=== PATIENT | male | born 1950 | race Caucasian/White ===

== ENCOUNTER → 2016-08-23 | Outpatient (CLI) | payer MEDICARE ==
[2016-08-23 18:20] LABS: BASO % 0.3 % (0.0-1.0); EOS # 0.2 K/mm3 (0.0-0.50); EOS % 3.3 % (0.0-3.0); LARGE UNSTAINED CELL # 0.1 K/mm3 (0.0-0.4); LARGE UNSTAINED CELL % 1.5 % (0.0-4.0); LYMPH # 1.5 K/mm3 (1.5-4.5); LYMPH % 22.8 % (24.0-44.0); MEAN CORPUSCULAR HGB CONC 31.7 g/dl (32.0-36.5); MEAN CORPUSCULAR VOLUME 94.5 fl (80.0-96.0); MONO # 0.4 K/mm3 (0.0-0.8); MONO % 6.9 % (0.0-5.0); NEUTROPHILS # 4.1 K/mm3 (1.8-7.7); NEUTROPHILS % 65.1 % (36.0-66.0); PLATELET COUNT, AUTOMATED 251 k/mm3 (150-450); RED CELL DISTRIBUTION WIDTH 14.6 % (11.5-14.5); WHITE BLOOD COUNT 6.3 K/mm3 (4.0-10.0)
[2016-08-23 18:45] LABS: ALBUMIN 3.6 GM/DL (3.2-5.2); ALBUMIN/GLOBULIN RATIO 1.03 (1.00-1.93); ALKALINE PHOSPHATASE 114 U/L (45-117); ALT/SGPT 33 U/L (12-78); ANION GAP 9 MEQ/L (8-16); AST/SGOT 15 U/L (15-37); BILIRUBIN,TOTAL 0.4 MG/DL (0.2-1.0); BLOOD UREA NITROGEN 18 MG/DL (7-18); CALCIUM LEVEL 8.5 MG/DL (8.8-10.2); CARBON DIOXIDE LEVEL 27 MEQ/L (21-32); CHLORIDE LEVEL 108 MEQ/L (98-107); CHOLESTEROL LEVEL 186 MG/DL (<200); CREATININE FOR GFR 0.95 MG/DL (0.70-1.30); FREE T4 1.05 NG/DL (0.76-1.46); GLOMERULAR FILTRATION RATE > 60.0 (>49); GLUCOSE, FASTING 117 MG/DL (80-110); POTASSIUM SERUM 4.5 MEQ/L (3.5-5.1); SODIUM LEVEL 144 MEQ/L (136-145); TOTAL PROTEIN 7.1 GM/DL (6.4-8.2); TRIGLYCERIDES LEVEL 87 MG/DL (<150)
== END ==
LOC: M WUC 09:33
PROVIDERS: ATTEND Physician Assistant Medical
DX: E78.2 Mixed hyperlipidemia (principal); I10 Essential (primary) hypertension; R73.01 Impaired fasting glucose

== ENCOUNTER → 2016-09-16 | Outpatient (REF) | payer MEDICARE | LOC: M SFHCADAM 11:57 | PROVIDERS: ATTEND Physician Assistant Medical | DX: D64.9 Anemia, unspecified (principal); Z53.8 Procedure and treatment not carried out for other reasons ==

== ENCOUNTER → 2016-10-27 | Outpatient (CLI) | payer MEDICARE ==
--- NOTE | 2016-10-27 17:43 | REP ---
Chest CT without contrast: Low-dose lung cancer screening study: History: Lung cancer screening. Comparison chest x-ray is from 09/11/2014. Findings: The patient is status post cholecystectomy. There are clips in the gallbladder fossa. Sutures are noted in the left upper abdomen suggesting gastric bypass surgery. The lung arauz show no evidence of infiltrate, nodule, or mass lesion. Tracheobronchial tree is unremarkable. There is some vascular calcification in the course of the left coronary artery. There appear to be to old right-sided rib fractures. Impression: Negative lung cancer screening CT study. Signed by Ck Lomeli MD 10/27/2016 07:36 P
== END ==
LOC: M RAD 16:42
PROVIDERS: ATTEND Physician Assistant Medical
DX: Z12.2 Encounter for screening for malignant neoplasm of respiratory organs (principal); F17.210 Nicotine dependence, cigarettes, uncomplicated

== ENCOUNTER → 2017-04-13 | Outpatient (REF) | payer OTHER ==
[~2017-04-13] MED LIST: LISI40TAB PO; LOVA20TA2 PO; MENSTAB5 PO; PANT40TA2 PO
[2017-04-13 21:08] LABS: BASO # 0.1 10^3/uL (0.0-0.2); BASO % 0.8 % (0.0-1.0); EOS # 0.1 10^3/uL (0.0-0.50); EOS % 1.8 % (0.0-3.0); IMMATURE GRANULOCYTE % 0.4 % (0-0); LYMPH # 1.6 10^3/uL (1.5-4.5); LYMPH % 20.9 % (24.0-44.0); MEAN CORPUSCULAR HGB CONC 31.1 g/dl (32.0-36.5); MEAN CORPUSCULAR VOLUME 89.9 fl (80.0-96.0); MONO # 0.8 10^3/uL (0.0-0.8); MONO % 9.9 % (0.0-5.0); NEUTROPHILS % 66.2 % (36.0-66.0); PLATELET COUNT, AUTOMATED 284 10^3/uL (150-450); RED CELL DISTRIBUTION WIDTH 16.8 % (11.5-14.5); WHITE BLOOD COUNT 7.6 10^3/uL (4.0-10.0)
[2017-04-13 21:55] LABS: PERCENT SATURATION 4.7 % (19.7-50.0)
[2017-04-13 22:01] LABS: FOLATE 14.4 NG/ML
== END ==
LOC: M SFHCADAM 16:18
PROVIDERS: ATTEND Physician Assistant Medical
DX: I10 Essential (primary) hypertension (principal); D64.9 Anemia, unspecified
CPT/HCPCS: 82607; 82728; 82746; 83550; 85025; 90471; 90715; G0463

== ENCOUNTER 2017-05-11 08:54 | Day surgery (SDC) | payer OTHER ==
[~2017-05-11] VITALS: Ht 180.3 cm; Wt 115.2 kg
[2017-05-11] MEDS ORDERED: NS 1,000 ML IV SCH (10:15)
[2017-05-11] MEDS ORDERED: LIDOCAINE 2% INJ 100 MG/5 ML SDV (FOR ANES.) As Ordered ONE (11:12)
[2017-05-11] MEDS ORDERED: PROPOFOL 500 MG/50 ML VIAL As Ordered ONE (11:12)
--- NOTE | 2017-05-11 11:21 | ROOR ---
Patient Name: Jacob Quezada Procedure Date: 05/11/2017 11:01 AM Date of : 1950 Age: 66 Room: [facility] Gender: Male Note Status: Finalized Procedure: Upper GI endoscopy Indications: Iron deficiency anemia Providers: Laureano SCHULTE MD Referring MD: SIRENA Johnson Requesting Provider: Medicines: Monitored Anesthesia Care Complications: No immediate complications. Procedure: Pre-Anesthesia Assessment: - The heart rate, respiratory rate, oxygen saturations, blood pressure, adequacy of pulmonary ventilation, and response to care were monitored throughout the procedure. The Endoscope was introduced through the mouth, and advanced to the jejunum. The upper GI endoscopy was accomplished without difficulty. The patient tolerated the procedure well. Findings: The examined esophagus was normal. Evidence of a previous surgical anastomosis was found in the gastric antrum. This was characterized by healthy appearing mucosa. The examined jejunum was normal. This was biopsied with a cold forceps for evaluation of celiac disease. Impression: - Normal esophagus. - A previous surgical anastomosis was found, characterized by healthy appearing mucosa. (The distal anastomosis is out of reach of the scope, but I presume this is a trudy en y, as I do not see any bile present in any segment of the exam). - Normal examined jejunum. Biopsied. Recommendation: - Recommend an iron supplement for the rest of the patient's life. Laureano Schulte MD Laureano SCHULTE MD 05/11/2017 11:20:46 AM This report has been signed electronically. Number of Addenda: 0 Note Initiated On: 05/11/2017 11:01 AM Estimated Blood Loss: Estimated blood loss: none.
--- NOTE | 2017-05-11 11:45 | ROOR ---
Patient Name: Jacob Quezada Procedure Date: 05/11/2017 11:02 AM Date of : 1950 Age: 66 Room: [facility] Gender: Male Note Status: Finalized Procedure: Colonoscopy Indications: Iron deficiency anemia Providers: Laureano SCHULTE MD Referring MD: SIRENA Johnson Requesting Provider: Medicines: Monitored Anesthesia Care Complications: No immediate complications. Procedure: Pre-Anesthesia Assessment: - The heart rate, respiratory rate, oxygen saturations, blood pressure, adequacy of pulmonary ventilation, and response to care were monitored throughout the procedure. The Colonoscope was introduced through the anus and advanced to the cecum, identified by appendiceal orifice and ileocecal valve. The colonoscopy was performed without difficulty. The patient tolerated the procedure well. The quality of the bowel preparation was adequate. Findings: The perianal and digital rectal examinations were normal. A single small angioectasia without bleeding was found in the cecum. For hemostasis, three hemostatic clips were successfully placed (MR conditional). There was no bleeding at the end of the procedure. The exam was otherwise without abnormality on direct and retroflexion views. Impression: - A single 2-3 mm non-bleeding angioectasia (dubious significance) in cecum. Clips (MR conditional) were placed. - Mild sigmoid diverticulosis. - The colon examination was otherwise normal on direct and retroflexion views. - No specimens collected. Recommendation: - Iron deficit is most likely related to malabsorption/gastric bypass. You need iron supplements daily for the rest of your life. - Repeat colonoscopy in 10 years for screening purposes. Laureano Schulte MD Laureano SCHULTE MD 05/11/2017 11:45:22 AM This report has been signed electronically. Number of Addenda: 0 Note Initiated On: 05/11/2017 11:02 AM Estimated Blood Loss: Estimated blood loss: none.
[2017-05-11 12:00] VITALS: BP 153/90
== END 2017-05-11 12:06 | disposition home or self-care (01) ==
LOC: M OPP 08:54
PROVIDERS: ATTEND Internal Medicine Gastroenterology
DX: D50.9 Iron deficiency anemia, unspecified (principal); K57.30 Diverticulosis of large intestine without perforation or abscess without bleeding; R12 Heartburn; K63.89 Other specified diseases of intestine; K21.9 Gastro-esophageal reflux disease without esophagitis; I10 Essential (primary) hypertension; E78.5 Hyperlipidemia, unspecified; M54.9 Dorsalgia, unspecified; F17.210 Nicotine dependence, cigarettes, uncomplicated; Z98.84 Bariatric surgery status; Z79.899 Other long term (current) drug therapy

== ENCOUNTER → 2017-06-29 | Outpatient (REF) | payer OTHER ==
[2017-06-29 15:39] LABS: PLATELET COUNT, AUTOMATED 264 10^3/uL (150-450)
[2017-06-29 15:50] LABS: INR 1.05
[2017-06-29 16:22] LABS: ERYTHROCYTE SEDIMENTATION RATE 11 mm/hr (0-20)
== END ==
LOC: M LABDRAW1 15:20
PROVIDERS: ATTEND Physical Medicine & Rehabilitation
DX: Z01.818 Encounter for other preprocedural examination (principal); M48.061 Spinal stenosis, lumbar region without neurogenic claudication

== ENCOUNTER → 2017-07-27 | Outpatient (REF) | payer OTHER ==
[2017-07-27 15:13] LABS: BLOOD UREA NITROGEN 21 MG/DL (7-18)
[2017-07-27 15:13] LABS: CREATININE FOR GFR 1.01 MG/DL (0.70-1.30); GLOMERULAR FILTRATION RATE > 60.0 (>49)
== END ==
LOC: M LABDRAW1 14:03
DX: Z79.1 Long term (current) use of non-steroidal anti-inflammatories (NSAID) (principal)
CPT/HCPCS: 82565

== ENCOUNTER → 2017-10-13 | Outpatient (REF) | payer OTHER ==
[2017-10-13 13:16] LABS: BASO % 0.7 % (0.0-1.0); EOS # 0.1 10^3/uL (0.0-0.50); HEMATOCRIT 41.9 % (42.0-52.0); HEMOGLOBIN 13.4 g/dl (14.0-18.0); IMMATURE GRANULOCYTE % 0.4 % (0-3.0); LYMPH # 1.1 10^3/uL (1.5-4.5); LYMPH % 20.3 % (24.0-44.0); MEAN CORPUSCULAR HEMOGLOBIN 28.5 pg (27.0-33.0); MONO # 0.5 10^3/uL (0.0-0.8); MONO % 8.6 % (0.0-5.0); NEUTROPHILS # 3.8 10^3/uL (1.8-7.7); PLATELET COUNT, AUTOMATED 234 10^3/uL (150-450); RED BLOOD COUNT 4.71 10^6/uL (4.30-6.10); RED CELL DISTRIBUTION WIDTH 17.5 % (11.5-14.5); WHITE BLOOD COUNT 5.6 10^3/uL (4.0-10.0)
[2017-10-13 13:27] LABS: BLOOD UREA NITROGEN 16 MG/DL (7-18); CREATININE FOR GFR 1.21 MG/DL (0.70-1.30); GLUCOSE, FASTING 118 MG/DL (70-100)
[2017-10-13 13:28] LABS: ALBUMIN 3.6 GM/DL (3.2-5.2); ALKALINE PHOSPHATASE 94 U/L (45-117); ALT/SGPT 26 U/L (12-78); ANION GAP 7 MEQ/L (8-16); AST/SGOT 13 U/L (7-37); BILIRUBIN,TOTAL 0.4 MG/DL (0.2-1.0); CALCIUM LEVEL 8.7 MG/DL (8.8-10.2); CARBON DIOXIDE LEVEL 26 MEQ/L (21-32); CHLORIDE LEVEL 110 MEQ/L (98-107); CHOLESTEROL LEVEL 179 MG/DL (<200); CHOLESTEROL RISK RATIO 2.712 (<5); FERRITIN 8 NG/ML (26-388); GLOMERULAR FILTRATION RATE > 60.0 (>49); HDL CHOLESTEROL 66 MG/DL (>40); IRON (FE) 189 UG/DL (65-175); LDL CHOLESTEROL 93.8 MG/DL (<100); NON-HDL-C 113 MG/DL; PERCENT SATURATION 44.7 % (19.7-50.0); POTASSIUM SERUM 4.7 MEQ/L (3.5-5.1); SODIUM LEVEL 143 MEQ/L (136-145); TOTAL IRON BINDING CAPACITY 423 UG/DL (250-450); TOTAL PROTEIN 7.2 GM/DL (6.4-8.2); TRIGLYCERIDES LEVEL 96 MG/DL (<150)
[2017-10-13 13:35] LABS: ESTIMATED AVERAGE GLUCOSE 120 MG/DL (60-110); HEMOGLOBIN A1c 5.8 %
[2017-10-13 13:53] LABS: MAU/CREAT RATIO 60.9 MCG/MG (0.0-30.0)
== END ==
LOC: M SFHCADAM 08:47
DX: I10 Essential (primary) hypertension (principal); E78.2 Mixed hyperlipidemia; E66.01 Morbid (severe) obesity due to excess calories; D50.9 Iron deficiency anemia, unspecified
CPT/HCPCS: 83550

== ENCOUNTER → 2017-11-05 | Outpatient (CLI) | payer OTHER | LOC: M RAD 08:06 | DX: K76.0 Fatty (change of) liver, not elsewhere classified (principal); F10.10 Alcohol abuse, uncomplicated; Z90.49 Acquired absence of other specified parts of digestive tract | CPT/HCPCS: 76705 ==

== ENCOUNTER → 2017-11-09 | Outpatient (REF) | payer OTHER ==
[2017-11-09 19:11] LABS: INR 1.05; PROTHROMBIN TIME 13.8 SECONDS (12.4-14.5)
[2017-11-09 19:23] LABS: AMMONIA 65 uMOL/L (<32)
[2017-11-10 08:32] LABS: ALPHA FETOPROTEIN TUMOR QUANT 2.4 NG/ML (<8.1)
== END ==
LOC: M SFHCADAM 14:07
DX: F10.10 Alcohol abuse, uncomplicated (principal); K70.30 Alcoholic cirrhosis of liver without ascites; K76.0 Fatty (change of) liver, not elsewhere classified; I10 Essential (primary) hypertension; F17.210 Nicotine dependence, cigarettes, uncomplicated; Z79.899 Other long term (current) drug therapy
CPT/HCPCS: 82140

== ENCOUNTER → 2017-12-05 | Outpatient (REF) | payer OTHER ==
[2017-12-05 17:41] LABS: BASO # 0.1 10^3/uL (0.0-0.2); EOS # 0.1 10^3/uL (0.0-0.50); EOS % 1.8 % (0.0-3.0); HEMATOCRIT 43.3 % (42.0-52.0); HEMOGLOBIN 13.8 g/dl (13.5-17.5); IMMATURE GRANULOCYTE % 0.2 % (0-3.0); LYMPH # 1.4 10^3/uL (1.5-4.5); LYMPH % 22.5 % (24.0-44.0); MEAN CORPUSCULAR HEMOGLOBIN 29.6 pg (27.0-33.0); MEAN CORPUSCULAR HGB CONC 31.9 g/dl (32.0-36.5); MEAN CORPUSCULAR VOLUME 92.9 fl (80.0-96.0); MONO # 0.6 10^3/uL (0.0-0.8); MONO % 9.3 % (0.0-5.0); NEUTROPHILS # 4.1 10^3/uL (1.8-7.7); NEUTROPHILS % 65.2 % (36.0-66.0); PLATELET COUNT, AUTOMATED 250 10^3/uL (150-450); RED BLOOD COUNT 4.66 10^6/uL (4.30-6.10); RED CELL DISTRIBUTION WIDTH 17.4 % (11.5-14.5); WHITE BLOOD COUNT 6.2 10^3/uL (4.0-10.0)
[2017-12-05 17:57] LABS: INR 0.96; PROTHROMBIN TIME 12.9 SECONDS (12.4-14.5)
[2017-12-05 17:58] LABS: ALBUMIN 3.5 GM/DL (3.2-5.2); ALBUMIN/GLOBULIN RATIO 0.95 (1.00-1.93); ALKALINE PHOSPHATASE 116 U/L (45-117); ALT/SGPT 46 U/L (12-78); ANION GAP 5 MEQ/L (8-16); AST/SGOT 30 U/L (7-37); BILIRUBIN,TOTAL 0.3 MG/DL (0.2-1.0); BLOOD UREA NITROGEN 21 MG/DL (7-18); CALCIUM LEVEL 8.5 MG/DL (8.8-10.2); CARBON DIOXIDE LEVEL 25 MEQ/L (21-32); CHLORIDE LEVEL 113 MEQ/L (98-107); CREATININE FOR GFR 0.99 MG/DL (0.70-1.30); FERRITIN 9 NG/ML (26-388); GLOMERULAR FILTRATION RATE > 60.0 (>49); GLUCOSE, FASTING 118 MG/DL (70-100); IRON (FE) 100 UG/DL (65-175); PERCENT SATURATION 23.3 % (19.7-50.0); SODIUM LEVEL 143 MEQ/L (136-145); TOTAL IRON BINDING CAPACITY 429 UG/DL (250-450); TOTAL PROTEIN 7.2 GM/DL (6.4-8.2)
[2017-12-05 17:59] LABS: AMMONIA 108 uMOL/L (<32)
[2017-12-05 18:08] LABS: ESTIMATED AVERAGE GLUCOSE 120 MG/DL (60-110); HEMOGLOBIN A1c 5.8 %; POTASSIUM SERUM 5.2 MEQ/L (3.5-5.1)
== END ==
LOC: M LABDRWAD 17:18
DX: I10 Essential (primary) hypertension (principal); D50.9 Iron deficiency anemia, unspecified; R73.01 Impaired fasting glucose; F10.10 Alcohol abuse, uncomplicated
CPT/HCPCS: 82140

== ENCOUNTER → 2018-01-18 | Outpatient (REF) | payer OTHER ==
[2018-01-18 19:52] LABS: AMMONIA 48 uMOL/L (<32)
== END ==
LOC: M SFHCADAM 15:20
DX: K70.30 Alcoholic cirrhosis of liver without ascites (principal)
CPT/HCPCS: 82140

== ENCOUNTER → 2018-02-17 | Outpatient (REF) | payer OTHER ==
[2018-02-17 12:40] LABS: AMMONIA 40 uMOL/L (<32)
== END ==
LOC: M SFHCADAM 10:32
DX: K70.30 Alcoholic cirrhosis of liver without ascites (principal)
CPT/HCPCS: 82140

== ENCOUNTER → 2018-04-09 | Outpatient (REF) | payer OTHER ==
[2018-04-09 15:12] LABS: INR 1.04; PROTHROMBIN TIME 13.7 SECONDS (12.1-14.4)
[2018-04-09 16:16] LABS: AMMONIA 53 uMOL/L (<32)
[2018-04-09 16:29] LABS: ALPHA FETOPROTEIN TUMOR QUANT 3.2 NG/ML (<8.1)
== END ==
LOC: M SFHCADAM 13:37
DX: F10.10 Alcohol abuse, uncomplicated (principal)
CPT/HCPCS: 82140

== ENCOUNTER → 2018-04-26 | Outpatient (CLI) | payer OTHER | LOC: M RAD 07:58 | DX: K70.30 Alcoholic cirrhosis of liver without ascites (principal) | CPT/HCPCS: 76705 ==

== ENCOUNTER 2018-09-21 11:22 | Emergency (ER) | payer MEDICARE, OTHER ==
[~2018-09-21] VITALS: Ht 180.3 cm; Wt 112.7 kg
[~2018-09-21 11:22] MED LIST changes: +LISI40TA PO; -LISI40TAB PO; -PANT40TA2 PO; +PANT40TA3 PO
[2018-09-21] MEDS ORDERED: MELO15TA28 PO (11:30)
--- NOTE | 2018-09-21 13:01 | REP ---
Left upper extremity duplex venous ultrasound: History: Pain and ecchymosis. Status post fall. Findings: The left internal jugular, axillary, brachial, basilic, and cephalic veins are anechoic and compressible in the left upper extremity. Color flow imaging is homogeneous. Spectral Doppler interrogation is unremarkable. There is no evidence of left upper extremity venous thrombosis. Impression: Negative left upper extremity duplex venous ultrasound. No evidence of venous thrombosis. Electronically Signed by Ck Lomeli MD 09/21/2018 12:53 P
--- NOTE | 2018-09-21 13:04 | REP ---
Left humerus: Two views. History: Pain and ecchymosis after fall. Findings: There is osteoarthritic hypertrophy at the AC joint. Glenohumeral joint is normally aligned. Mild inferior glenoid spurring is seen. The there is no evidence of fracture or subluxation. Lateral epicondylar spurring is noted at the elbow. Impression: No traumatic abnormality noted. Osteoarthritic changes and lateral epicondylar spurring. Electronically Signed by Ck Lomeli MD 09/21/2018 12:55 P
[2018-09-21 13:18] VITALS: BP 166/90
--- NOTE | 2018-09-21 13:36 | REP ---
Left shoulder series: Three views. History: Pain and ecchymosis after a fall. Findings: There is moderate osteoarthritis at the AC joint. Inferolateral acromion process spurring is seen. Glenohumeral osteoarthritic spurring is seen mild in degree. No erosive changes seen. No fracture is noted. Impression: Osteoarthritis. No fracture seen. Electronically Signed by Ck Lomeli MD 09/21/2018 02:46 P
== END 2018-09-21 13:49 | disposition home or self-care (01) ==
LOC: M ED 11:22
DX: S40.022A Contusion of left upper arm, initial encounter (principal); W00.9XXA Unspecified fall due to ice and snow, initial encounter; Y92.099 Unspecified place in other non-institutional residence as the place of occurrence of the external cause; Y93.9 Activity, unspecified; Y99.9 Unspecified external cause status; M79.602 Pain in left arm; M77.12 Lateral epicondylitis, left elbow; M19.022 Primary osteoarthritis, left elbow; K21.9 Gastro-esophageal reflux disease without esophagitis; G47.30 Sleep apnea, unspecified; Z98.84 Bariatric surgery status; Z72.0 Tobacco use; Z79.899 Other long term (current) drug therapy

== ENCOUNTER → 2018-09-30 | Outpatient (CLI) | payer MEDICARE ==
[~2018-09-30] MED LIST changes: +MELO15TA28 PO
--- NOTE | 2018-09-30 18:33 | REP ---
Clinical: EtOH hepatic disease. Technique: Real time myers scale ultrasound examination using curved array transducer. Comparison: 04/26/2018. Findings: Liver is mildly enlarged but normal in parenchymal echogenicity and without focal hepatic lesion identified. The pancreas is unremarkable. The gallbladder is absent and consistent with prior cholecystectomy. No biliary ductal dilatation is appreciated and the common bile duct measures 6.5 mm diameter. Right kidney is normal in reniform shape without hydronephrosis and measures 13.4 x 6.9 x 6.8 cm. No ascites. Impression: Subjectively mildly enlarged liver without focal hepatic lesion identified. No significant change from prior examination. Electronically Signed by Silas Virgen MD 09/30/2018 06:24 P
== END ==
LOC: M RAD 08:11
PROVIDERS: ATTEND Physician Assistant Medical
DX: K70.30 Alcoholic cirrhosis of liver without ascites (principal)

== ENCOUNTER → 2018-10-10 | Outpatient (CLI) | payer OTHER | LOC: M ADAMS 08:16 | PROVIDERS: ATTEND Physician Assistant Medical | DX: K76.0 Fatty (change of) liver, not elsewhere classified (principal); K70.30 Alcoholic cirrhosis of liver without ascites; R73.01 Impaired fasting glucose; D50.9 Iron deficiency anemia, unspecified; K21.9 Gastro-esophageal reflux disease without esophagitis; Z53.9 Procedure and treatment not carried out, unspecified reason ==

== ENCOUNTER → 2018-10-10 | Outpatient (REF) | payer OTHER ==
[2018-10-10 18:22] LABS: BASO # 0.1 10^3/uL (0.0-0.2); BASO % 0.9 % (0.0-1.0); EOS # 0.3 10^3/uL (0.0-0.50); EOS % 3.9 % (0.0-3.0); HEMATOCRIT 45.5 % (42.0-52.0); LYMPH # 1.2 10^3/uL (1.5-4.5); LYMPH % 18.4 % (24.0-44.0); MEAN CORPUSCULAR HEMOGLOBIN 32.1 pg (27.0-33.0); MEAN CORPUSCULAR VOLUME 97.2 fl (80.0-96.0); MONO # 0.6 10^3/uL (0.0-0.8); MONO % 9.3 % (0.0-5.0); NEUTROPHILS # 4.3 10^3/uL (1.8-7.7); NEUTROPHILS % 67.2 % (36.0-66.0); PLATELET COUNT, AUTOMATED 228 10^3/uL (150-450); RED BLOOD COUNT 4.68 10^6/uL (4.30-6.10); WHITE BLOOD COUNT 6.4 10^3/uL (4.0-10.0)
[2018-10-10 18:23] LABS: ALBUMIN 3.6 GM/DL (3.2-5.2); ALT/SGPT 44 U/L (12-78); BILIRUBIN,TOTAL 0.4 MG/DL (0.2-1.0); BLOOD UREA NITROGEN 19 MG/DL (7-18); CALCIUM LEVEL 8.5 MG/DL (8.8-10.2); CARBON DIOXIDE LEVEL 27 MEQ/L (21-32); CHLORIDE LEVEL 109 MEQ/L (98-107); CHOLESTEROL LEVEL 171 MG/DL (<200); CHOLESTEROL RISK RATIO 2.758 (<5); FERRITIN 22 NG/ML (26-388); GLOMERULAR FILTRATION RATE > 60.0 (>49); GLUCOSE, FASTING 130 MG/DL (70-100); HDL CHOLESTEROL 62 MG/DL (>40); IRON (FE) 116 UG/DL (65-175); LDL CHOLESTEROL 92 MG/DL (<100); NON-HDL-C 109 MG/DL; PERCENT SATURATION 29.1 % (19.7-50.0); POTASSIUM SERUM 4.9 MEQ/L (3.5-5.1); SODIUM LEVEL 141 MEQ/L (136-145); THYROID STIMULATING HORMONE 0.858 uIU/ML (0.358-3.740); TOTAL IRON BINDING CAPACITY 399 UG/DL (250-450); TRIGLYCERIDES LEVEL 83 MG/DL (<150)
[2018-10-10 18:57] LABS: HEMOGLOBIN A1c 5.5 %
== END ==
LOC: M SFHCADAM 08:04
PROVIDERS: ATTEND Physician Assistant Medical
DX: K76.0 Fatty (change of) liver, not elsewhere classified (principal); K70.30 Alcoholic cirrhosis of liver without ascites; K21.9 Gastro-esophageal reflux disease without esophagitis; R73.01 Impaired fasting glucose; D50.9 Iron deficiency anemia, unspecified

== ENCOUNTER → 2018-10-19 | Outpatient (CLI) | payer MEDICARE ==
--- NOTE | 2018-10-23 09:43 | REP ---
Clinical: Palpable thyroid neck mass. Technique: Real time myers scale and color evaluation using linear high frequency transducer. Findings: The thyroid gland is diffusely heterogeneous. The isthmus measures 7.6 mm in width. The right lobe measures 4.1 x 2.6 x 2.0 cm and the palpable mass corresponds to a complex cyst in the mid/lower pole measuring 1.6 x 1.7 x 1.9 cm which contains few septations and 7 mm soft tissue component with punctate calcifications. A small simple upper pole cyst is also identified measuring 0.4 x 0.4 x 0.3 cm. The left lobe measures 4.2 x 2.5 x 2.2 cm and includes 1.2 x 1.1 x 1.0 cm isoechoic mid pole nodule along with two simple cysts measuring 0.6 x 0.4 x 0.3 cm and 0.5 x 0.3 x 0.3 cm. Impression: 1. Palpable thyroid mass corresponds to complex cyst in the right lobe which may warrant further investigation including biopsy. 2. Nonspecific isoechoic nodule in the left lobe and few small simple cysts are also identified bilaterally. Electronically Signed by Silas Virgen MD 10/23/2018 09:35 A
== END ==
LOC: M RAD 13:24
PROVIDERS: ATTEND Physician Assistant Medical
DX: R22.1 Localized swelling, mass and lump, neck (principal)

== ENCOUNTER → 2018-11-28 | Outpatient (REF) | payer MEDICARE | LOC: M SFHCADAM 08:04 | PROVIDERS: ATTEND Physician Assistant Medical | DX: K70.30 Alcoholic cirrhosis of liver without ascites (principal) ==

== ENCOUNTER → 2018-12-09 | Outpatient (REF) | payer MEDICARE | LOC: M LAB REF 15:52 | PROVIDERS: ATTEND Internal Medicine Endocrinology, Diabetes & Metabolism | DX: E07.9 Disorder of thyroid, unspecified (principal) ==

== ENCOUNTER → 2019-01-26 | Outpatient (CLI) | payer MEDICARE ==
[~2019-01-26] MED LIST changes: +LACT10SO3 PO; +LIDOCAINE 1% MDV 20ML VIAL As Ordered ONE; +MULT1TAB8 PO
[2019-01-26 13:00] VITALS: BP 164/89
--- NOTE | 2019-01-26 20:37 | REP ---
Ultrasound-guided right thyroid biopsy This procedure was performed by SRIRAM Storey, under the personal supervision of Dr. Edward. The patient has a history of complex cyst in the right mid/lower pole measuring 1.6 x 1.7 x 1.9 cm which contains a few septations and a 7 mm soft tissue component on an ultrasound dated 10/19/2018. The risks and the benefits of the procedure were explained to the patient and informed consent was obtained both verbally and written. Directly prior to the start of the procedure, a formal time out was completed in the procedure room. The right thyroid nodule was localized using ultrasound guidance. The skin was prepped and draped in a sterile fashion. 1% lidocaine was used as a local anesthetic. Using ultrasound guidance 5 fine-needle aspirations were obtained using 25 gauge needles of the right thyroid nodule. The patient tolerated the procedure well and there were no immediate complications. After the appropriate amount of monitored convalescence the patient was discharged from the department. Reviewed by SRIRAM Storey 01/26/2019 02:01 P Electronically Signed by Kike Edward MD 01/26/2019 08:27 P
== END ==
LOC: M IRPRO 11:30 → M RADPRO 11:30
PROVIDERS: ATTEND Internal Medicine Endocrinology, Diabetes & Metabolism
DX: E04.2 Nontoxic multinodular goiter (principal)

== ENCOUNTER → 2019-02-09 | Outpatient (REF) | payer MEDICARE ==
[~2019-02-09] MED LIST changes: -LIDOCAINE 1% MDV 20ML VIAL As Ordered ONE
== END ==
LOC: M SFHCPLAZ 17:20
PROVIDERS: ATTEND Dermatology
DX: C43.62 Malignant melanoma of left upper limb, including shoulder (principal)

== ENCOUNTER → 2019-03-11 | Outpatient (CLI) | payer MEDICARE ==
[~2019-03-11] MED LIST changes: +EMLA CREAM 5GM (LIDOCAINE/PRILOCAINE) As Ordered ONE
--- NOTE | 2019-03-14 09:31 | REP ---
MELANOMA LYMPHOSCINTIGRAPHY: Lymphoscintigraphy is performed for melanoma lesion on the soft tissues of the left shoulder region. Injection was performed by my colleague, Alivia Shah, RSA. 1.008 millicuries technetium 99m filtered sulfur colloid is injected subcutaneously in eight equal separate injection circumferentially around the skin lesion. Images are obtained in the flow phase and 60 minutes post injection. Two discrete foci of increased uptake are seen in the region of the left axilla, one somewhat anteriorly and one somewhat posteriorly. Electronically Signed by Kike Edward MD 03/15/2019 11:29 P
== END ==
LOC: M RADPRO 07:43 → M SDC 07:43 → EDSTATUS 08:00
PROVIDERS: ATTEND Surgery
DX: C43.62 Malignant melanoma of left upper limb, including shoulder (principal)
CPT/HCPCS: 78195; A9541

== ENCOUNTER → 2019-03-24 | Outpatient (REF) | payer MEDICARE ==
[~2019-03-24] MED LIST changes: -EMLA CREAM 5GM (LIDOCAINE/PRILOCAINE) As Ordered ONE
[2019-03-24 12:56] LABS: HEMATOCRIT 41.5 % (42.0-52.0); HEMOGLOBIN 13.9 g/dl (13.5-17.5); MEAN CORPUSCULAR HEMOGLOBIN 31.2 pg (27.0-33.0); MEAN CORPUSCULAR HGB CONC 33.5 g/dl (32.0-36.5); PLATELET COUNT, AUTOMATED 237 10^3/uL (150-450); RED BLOOD COUNT 4.46 10^6/uL (4.30-6.10); WHITE BLOOD COUNT 6.3 10^3/uL (4.0-10.0)
[2019-03-24 13:23] LABS: ALBUMIN 3.3 GM/DL (3.2-5.2); ALT/SGPT 42 U/L (12-78); BILIRUBIN,TOTAL 0.4 MG/DL (0.2-1.0); BLOOD UREA NITROGEN 18 MG/DL (7-18); CALCIUM LEVEL 8.7 MG/DL (8.8-10.2); CARBON DIOXIDE LEVEL 27 MEQ/L (21-32); CHLORIDE LEVEL 111 MEQ/L (98-107); CREATININE FOR GFR 0.88 MG/DL (0.70-1.30); GLOMERULAR FILTRATION RATE > 60.0 (>49); GLUCOSE, FASTING 100 MG/DL (70-100); SODIUM LEVEL 144 MEQ/L (136-145)
== END ==
LOC: M SFHCADAM 10:51
PROVIDERS: ATTEND Physician Assistant
DX: K70.30 Alcoholic cirrhosis of liver without ascites (principal); I10 Essential (primary) hypertension
CPT/HCPCS: 80053; 82140; 85027; G0463

== ENCOUNTER 2019-03-28 06:27 | Day surgery (SDC) | payer MEDICARE ==
[~2019-03-28] VITALS: Ht 180.3 cm; Wt 113.9 kg
[~2019-03-28 06:27] MED LIST changes: +LIDOCAINE 1% MDV 20ML VIAL SQ PRN; +LR 1,000 ML IV ONE
[2019-03-28] MEDS ORDERED: EMLA CREAM 5GM (LIDOCAINE/PRILOCAINE) As Ordered ONE ×2 (07:21→07:33)
[2019-03-28] MEDS ORDERED: EMLA CREAM 5GM (LIDOCAINE/PRILOCAINE) TOP ONE (08:00)
[2019-03-28] MEDS ORDERED: fentaNYL 100 MCG/2 ML INJECTION (J3010) As Ordered ONE ×3 (10:56→13:56)
[2019-03-28] MEDS ORDERED: MIDAZOLAM INJ 2 MG/2 ML VIAL (J2250) As Ordered ONE (10:56)
[2019-03-28] MEDS ORDERED: PROPOFOL 200 MG/20 ML VIAL As Ordered ONE ×3 (10:56→13:54)
[2019-03-28] MEDS ORDERED: LIDOCAINE 2% INJ 100 MG/5 ML SDV (FOR ANES.) As Ordered ONE (10:56)
[2019-03-28] MEDS ORDERED: BUPIVACAINE HCL 0.25% 30 ML VIAL As Ordered ONE (10:57)
[2019-03-28] MEDS ORDERED: LIDOCAINE 1% SDV INJ 30 ML VIAL As Ordered ONE (10:57)
[2019-03-28] MEDS ORDERED: ROCURONIUM BROMIDE 50 MG/5 ML VIAL As Ordered ONE (12:16)
[2019-03-28] MEDS ORDERED: GLYCOPYRROLATE INJ 0.2 MG/ML 2 ML VIAL As Ordered ONE ×2 (12:56→13:30)
[2019-03-28] MEDS ORDERED: METHYLENE BLUE 0.5% (5MG/ML) 10 ML AMP (PROVAYBLUE)(Q9968 PER 1MG) As Ordered ONE (13:23)
[2019-03-28] MEDS ORDERED: PHENYLephrine HCL 500 MCG/5 ML (100MCG/ML) SYRINGE (J2370) As Ordered ONE ×2 (13:25→14:53)
[2019-03-28] MEDS ORDERED: ONDANSETRON 4MG/2ML VIAL (J2405) As Ordered ONE (13:30)
[2019-03-28] MEDS ORDERED: fentaNYL 100 MCG/2 ML INJECTION (J3010) IV PRN (16:30)
[2019-03-28] MEDS ORDERED: LR 1,000 ML IV SCH (16:30)
[2019-03-28] MEDS ORDERED: KETOROLAC 30 MG/ML VIAL (J1885) IV PRN (16:30)
[2019-03-28] MEDS ORDERED: ONDANSETRON 4MG/2ML VIAL (J2405) IV PRN (16:30)
[2019-03-28] MEDS ORDERED: NORCO, ANEXSIA 5/325MG TABLET (HYDROcodone/ACETAMINOPHEN) PO PRN (16:30)
[2019-03-28] MEDS ORDERED: PERCOCET 5MG/325MG TAB PO PRN (16:30)
[2019-03-28 17:40] VITALS: BP 163/79
--- NOTE | 2019-03-29 16:14 | ROOPDOC ---
[facility] Report Of Operation Report of Operation DATE OF PROCEDURE: 03/28/19 PREPROCEDURE DIAGNOSES: Left shoulder melanoma. POSTPROCEDURE DIAGNOSES: Left shoulder melanoma. PROCEDURE: Wide local excision left shoulder melanoma, sentinel lymph node biopsy left axilla. SURGEON: Asad Maria MD ANESTHESIA: Gen. anesthesia. ESTIMATED BLOOD LOSS: Approximately 20 mL. COMPLICATIONS: None. REMARKS: 60-year-old male found to have melanoma on his left shoulder at the ape x of the shoulder close to the Ommaya clavicular prominence by his gas fitter apprentice or dizziness is about 1.5 cm circumferentially and about 1 mm thick. He was advised for need for wide local excision in the clinic likewise need for sentinel lymph node biopsy to determine possibility of lymphatic spread of the melanoma. I had preoperatively sent him for lymphoscintigram and this shows drainage to the left axilla. PROCEDURE NOTE: 5 lymph nodes were removed which were noted to be hot and blue in color DESCRIPTION OF PROCEDURE: Patient received Ancef 2 IV preoperatively for wound prophylaxis. He was sent to radiology for injection of radiolabeled dye and again this confirms axillary drainage on lymphoscintigram. He was brought to the operating room, placed sup ine on the table a shoulder roll was placed to accentuate the position of the left shoulder. This left neck chest shoulder back and arm was then prepped and draped in usual sterile fashion. We paused for a surgical timeout using both pre-incision safety checklist to verify correct patient, procedure site and additional clinical information prior to beginning the procedure. I injected a total of 6 mL of methylene blue. With saline intradermally around the lesion and left shoulder and massage the area for roughly 3 minutes. Surgical procedure with the sentinel lymph node biopsy. The neoprobe firm spread of the radiolabeled labeled colloid to the axilla. A transverse incision was created at the bottom third of the axilla and this was taken deep through the ha bcutaneous tissue. A self-retaining the Pitkin retractor was placed. Blunt dissection with Metzenbaum scissors guided by the neoprobe was then performed. There was a hot area at the medial superior portion of the axilla. This was delivered into view and palpated. Slightly prominent lymph node was noted that was hot on the neoprobe. A clump of tissue containing this area was removed which contains 3 lymph nodes. The hot lymph node read on a 10 second count is 2500. There is some blue dye with this lymph node. 3 more lymph nodes were found and removed on the day lymph nodes or blue but was not hot and a second lymph node was mildly warm with a count of 90 and also blue. Survey of the axilla shows there is still some background counts so I searched for other lymph nodes that are hot on the neoprobe. On the imaging there is an inferior lid located lymph node that also lit up. The surgical once the neoprobe found the hot area. This lymph node was removed this was also slightly marked with a blue dye. The count is 1960. Return of the neoprobe shows only background counts of 20. A another prominent blue lymph node was removed but this was not hot. After ensuring adequate hemostasis area still was placed in the cavity and the cavity was closed to reduce the size of the cavity with 3-0 Vicryl at the subcutaneous space and also at the dermis. The incision was then closed with 4-0 Monocryl. I then changed gloves a 1 cm margin was placed around the scar from shave biopsy at the site of the melanoma this was excised sharply to include the subcutaneous tissue to the level of the anvil opening fascia on the shoulder. This was marked with a short suture anterior and the long suture lateral. The incision was undermined 2 cm circumferentially to allow for tension-free closure. The excess skin on both ends was trimmed and the incision was then closed with 3-0 Vicryl at the subcutaneous space tissue and dermis and interrupted sutures of 4-0 nylon to close the skin. Xeroform gauze dressings covered with Tegaderm was then used for dressing. Patient tolerated procedure well and he was promptly awakened, extubated and brought to recovery room in stable condition. ASAD MARIA MD Mar 29, 2019 16:14
--- NOTE | 2019-04-01 11:39 | REP ---
Melanoma Lymphoscintigraphy The procedure was performed by SRIRAM Gonsalves, under the direct supervision of Dr. Edward. The risks and benefits of the procedure were explained to the patient and informed consent was obtained both verbally and written. Directly prior to the start of the procedure, a formal timeout was completed in the procedure room. Lymphoscintigraphy is performed for a melanoma lesion on the soft tissues of the left shoulder region. Using topical anesthetic and sterile technique 1.021 mCi of technetium 99m filtered sulfur colloid was injected subdermally in eight equal separate injections circumferentially around the skin lesion. Images are obtained in the flow phase and 60 minutes post injection. Two discrete foci of increased uptake are again visualized in the region of the left axilla. There is also question of an additional small focus posteriorly, this was not seen on the prior imaging study dated 2018. Reviewed by SRIRAM Storey 03/31/2019 06:32 P Electronically Signed by Kike Edward MD 04/01/2019 11:30 A
== END 2019-03-28 17:50 | disposition home or self-care (01) ==
LOC: M SDC 06:27
PROVIDERS: ATTEND Surgery
DX: C43.62 Malignant melanoma of left upper limb, including shoulder (principal); I10 Essential (primary) hypertension; K21.9 Gastro-esophageal reflux disease without esophagitis; E78.49 Other hyperlipidemia; D64.9 Anemia, unspecified; E07.9 Disorder of thyroid, unspecified; Z98.84 Bariatric surgery status; M54.5 Low back pain; Z79.899 Other long term (current) drug therapy; F17.210 Nicotine dependence, cigarettes, uncomplicated; K74.60 Unspecified cirrhosis of liver
CPT/HCPCS: 11602; 38525; 78195; 88305; 88307; A9541; J0690; J1885; J2250; J2370; J2405; J3010; Q9968

== ENCOUNTER → 2019-05-27 | Outpatient (CLI) | payer MEDICARE ==
[~2019-05-27] MED LIST changes: -LIDOCAINE 1% MDV 20ML VIAL SQ PRN; -LR 1,000 ML IV ONE
--- NOTE | 2019-05-27 09:09 | REP ---
RIGHT UPPER QUADRANT SONOGRAPHY: HISTORY: Fatty liver. Alcoholic cirrhosis of the liver without ascites. COMPARISON STUDY: September 30, 2018. FINDINGS: Right upper quadrant scanning shows prominent left lobe and a relatively small right lobe. No focal liver lesion is seen. Common bile duct is normal measuring 0.8 cm. Gallbladder is surgically absent. Limited views of the pancreas show no abnormality. There is no visible ascites. No right renal abnormality is seen. The right kidney measures 12.8 x 7.0 x 6.2 cm. IMPRESSION: No focal liver mass lesion. Prominent left lobe. Post cholecystectomy. Electronically Signed by Ck Lomeli MD 05/27/2019 10:06 A
== END ==
LOC: M RAD 06:54
PROVIDERS: ATTEND Physician Assistant Medical
DX: K70.30 Alcoholic cirrhosis of liver without ascites (principal); K76.0 Fatty (change of) liver, not elsewhere classified; Z90.49 Acquired absence of other specified parts of digestive tract

== ENCOUNTER → 2019-05-31 | Outpatient (REF) | payer MEDICARE ==
[2019-05-31 13:17] LABS: BASO # 0.1 10^3/uL (0.0-0.2); BASO % 0.9 % (0.0-1.0); EOS # 0.1 10^3/uL (0.0-0.5); EOS % 2.1 % (0.0-3.0); HEMATOCRIT 45.7 % (42.0-52.0); HEMOGLOBIN 14.8 g/dl (13.5-17.5); LYMPH # 1.5 10^3/uL (1.5-5.0); LYMPH % 22.5 % (24.0-44.0); MEAN CORPUSCULAR HGB CONC 32.4 g/dl (32.0-36.5); MEAN CORPUSCULAR VOLUME 98.9 fl (80.0-96.0); MONO # 0.6 10^3/uL (0.0-0.8); MONO % 8.6 % (0.0-5.0); NEUTROPHILS # 4.4 10^3/uL (1.5-8.5); NEUTROPHILS % 65.6 % (36.0-66.0); PLATELET COUNT, AUTOMATED 242 10^3/uL (150-450); RED BLOOD COUNT 4.62 10^6/uL (4.30-6.10); WHITE BLOOD COUNT 6.8 10^3/uL (4.0-10.0)
[2019-05-31 13:20] LABS: ALBUMIN 3.3 GM/DL (3.2-5.2); ALT/SGPT 44 U/L (12-78); BILIRUBIN,TOTAL 0.4 MG/DL (0.2-1.0); BLOOD UREA NITROGEN 26 MG/DL (7-18); CALCIUM LEVEL 8.4 MG/DL (8.8-10.2); CARBON DIOXIDE LEVEL 24 MEQ/L (21-32); CHLORIDE LEVEL 112 MEQ/L (98-107); CHOLESTEROL LEVEL 168 MG/DL (<200); CHOLESTEROL RISK RATIO 2.709 (<5); CREATININE FOR GFR 1.06 MG/DL (0.70-1.30); GLOMERULAR FILTRATION RATE > 60.0 (>49); GLUCOSE, FASTING 102 MG/DL (70-100); HDL CHOLESTEROL 62 MG/DL (>40); LDL CHOLESTEROL 71 MG/DL (<100); NON-HDL-C 106 MG/DL; SODIUM LEVEL 142 MEQ/L (136-145); TRIGLYCERIDES LEVEL 173 MG/DL (<150)
[2019-05-31 13:37] LABS: HEMOGLOBIN A1c 5.9 %
[2019-05-31 13:38] LABS: MALB URINE SIEMENS 36.8 MG/L; MAU/CREAT RATIO 22.4 MCG/MG (0.0-30.0)
[2019-06-01 00:40] LABS: FERRITIN 30 NG/ML (26-388); IRON (FE) 125 UG/DL (65-175); PERCENT SATURATION 33.8 % (19.7-50.0); TOTAL IRON BINDING CAPACITY 370 UG/DL (250-450)
== END ==
LOC: M SFHCADAM 09:54
PROVIDERS: ATTEND Physician Assistant Medical
DX: K70.30 Alcoholic cirrhosis of liver without ascites (principal); E78.2 Mixed hyperlipidemia; K21.9 Gastro-esophageal reflux disease without esophagitis; R73.01 Impaired fasting glucose; D50.9 Iron deficiency anemia, unspecified

== ENCOUNTER → 2019-06-20 | Outpatient (REF) | payer MEDICARE | LOC: M LAB REF 18:52 | PROVIDERS: ATTEND Dermatology | DX: D22.5 Melanocytic nevi of trunk (principal); D22.61 Melanocytic nevi of right upper limb, including shoulder ==

== ENCOUNTER → 2019-06-27 | Outpatient (CLI) | payer MEDICARE ==
--- NOTE | 2019-06-27 10:27 | REP ---
CT CHEST WITHOUT CONTRAST: Low-dose screening exam. HISTORY: Nicotine dependence. There is apparently also history of malignant melanoma. COMPARISON STUDY: October 27, 2016. CT FINDINGS: Preliminary program director scouting radiograph shows clips in the right upper quadrant of the abdomen and in the left axillary soft tissues. There is no significant pulmonary nodule seen. Lung arauz are clear. Vascular calcification is again noted. There are healing fractures involving the anterolateral left 6th and 7th ribs. There is a stable sclerotic lesion involving the right 6th rib unchanged. This may be a benign enchondroma. It is very slightly expansile. No other significant bony finding. The patient appears to be status post gastric bypass. IMPRESSION: Lung RADS 1 negative examination of the lungs. Interval left sided healing rib fractures and left axillary surgical clips. 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 Consider repeat screening chest CT in 1 year, sooner if the patient's melanoma surveillance plan warrants. Electronically Signed by Ck Lomeli MD 06/27/2019 12:14 P
== END ==
LOC: M RAD 07:47
PROVIDERS: ATTEND Physician Assistant Medical
DX: F17.210 Nicotine dependence, cigarettes, uncomplicated (principal)

== ENCOUNTER 2019-10-31 20:16 | Emergency (ER) | payer MEDICARE ==
[~2019-10-31] VITALS: Ht 180.3 cm; Wt 111.8 kg
[2019-10-31] MEDS ORDERED: NS 1,000 ML IV ONE (20:45)
[2019-10-31] MEDS ORDERED: PANTOPRAZOLE 40MG INJ (PROTONIX) (C9113) IV ONE (20:45)
[2019-10-31] MEDS ORDERED: FERR325T16 PO (20:56)
[2019-10-31 20:57] LABS: BASO % 0.3 % (0.0-1.0); HEMOGLOBIN 8.3 g/dl (13.5-17.5); LYMPH # 1.2 10^3/uL (1.5-5.0); LYMPH % 8.1 % (24.0-44.0); MEAN CORPUSCULAR HEMOGLOBIN 27.2 pg (27.0-33.0); MEAN CORPUSCULAR HGB CONC 30.7 g/dl (32.0-36.5); MEAN CORPUSCULAR VOLUME 88.5 fl (80.0-96.0); MONO # 0.9 10^3/uL (0.0-0.8); MONO % 6.2 % (0.0-5.0); NEUTROPHILS # 12.8 10^3/uL (1.5-8.5); NEUTROPHILS % 84.7 % (36.0-66.0); PLATELET COUNT, AUTOMATED 361 10^3/uL (150-450); RED BLOOD COUNT 3.05 10^6/uL (4.30-6.10); WHITE BLOOD COUNT 15.1 10^3/uL (4.0-10.0)
[2019-10-31 21:08] LABS: INR 1.48; PROTHROMBIN TIME 17.6 SECONDS (11.8-14.0)
[2019-10-31 21:22] LABS: ALBUMIN 2.7 GM/DL (3.2-5.2); BILIRUBIN,DIRECT 0.1 MG/DL (0.0-0.2); BILIRUBIN,TOTAL 0.3 MG/DL (0.2-1.0); CALCIUM LEVEL 7.5 MG/DL (8.8-10.2); CK-MB VALUE MASS 6.6 NG/ML (<3.6); CREATININE FOR GFR 1.98 MG/DL (0.70-1.30); MB/CK RELATIVE INDEX 6.17 (< OR =4); TOTAL PROTEIN 5.6 GM/DL (6.4-8.2); TROPONIN I 0.54 NG/ML (< 0.10)
[2019-10-31] MEDS ORDERED: DEXTROSE 50% 50 ML SYRINGE IV STA (22:11)
[2019-10-31] MEDS ORDERED: HumuLIN R (REGULAR) INSULIN (NovoLIN R) **100U/ML** PER UNIT IV ONE (22:15)
[2019-10-31 22:16] VITALS: BP 115/57
[2019-10-31 22:31] VITALS: BP 120/59
--- NOTE | 2019-10-31 22:44 | REPVR ---
PROCEDURE INFORMATION: Exam: CT Abdomen And Pelvis Without Contrast Exam date and time: 10/31/2019 10:24 PM Age: 68 years old Clinical indication: Epigastric pain. History of cirrhosis and a cholecystectomy. TECHNIQUE: Imaging protocol: Computed tomography of the abdomen and pelvis without contrast. Radiation optimization: All CT scans at this facility use at least one of these dose optimization techniques: automated exposure control; mA and/or kV adjustment per patient size (includes targeted exams where dose is matched to clinical indication); or iterative reconstruction. COMPARISON: LIVER US 05/27/2019 7:08 AM FINDINGS: Lungs: The imaged portions of the lung bases are clear. The lungs were not fully imaged. Heart: No cardiomegaly. There is a small pericardial effusion that measures water density. Coronary artery calcifications are present. Diaphragm: Intact. Liver: There is a nodular contour of the liver and atrophy of the right hepatic lobe, which are findings compatible with cirrhosis. No liver mass is identified with this unenhanced technique. No hepatomegaly. Gallbladder and bile ducts: There has been a cholecystectomy. There is no fluid collection in the gallbladder fossa. No dilation of the intrahepatic or extrahepatic bile ducts is noted. Pancreas: Unremarkable. No dilation of the main pancreatic duct is noted. There is no inflammatory fat stranding around the pancreas to suggest acute pancreatitis. Spleen: Unremarkable. No splenomegaly. Adrenals: There is nodular thickening of both adrenal glands. Kidneys and ureters: The kidneys are unremarkable. No renal lesion is noted. No stones are noted in the kidneys or ureters. There is no hydronephrosis or hydroureter. Stomach and bowel: Postoperative changes are noted from a Yael-en-Y gastric bypass surgery. There is a moderate amount of fluid in the bypassed portion of the stomach. The small bowel is unremarkable. There is colonic diverticulosis without evidence for diverticulitis. There is no evidence for a bowel obstruction, colitis, pneumatosis intestinalis, intussusception, volvulus, or perforated viscus. There is liquid feces in the colon, which will lead to diarrhea. Appendix: Normal. There is no evidence for appendicitis. Intraperitoneal space: No free air. No fluid collection. Retroperitoneal space: No fluid collection. No mass. Vasculature: There is no abdominal aortic aneurysm or intramural hematoma. There are moderate to severe atherosclerotic calcifications. Lymph nodes: No enlarged lymph nodes. Bladder: There is thickening of the wall of the partially distended urinary bladder. No stones are noted in the bladder. Reproductive: The prostate gland is enlarged and measures 5.5 cm x 5.1 cm x 5.9 cm and the volume of the prostate gland is increased and measures 86.7 mL. The seminal vesicles are unremarkable. Bones/joints: No fracture or dislocation is noted. There is no suspicious osteolytic or osteoblastic lesion. There are degenerative changes involving the lumbar spine. There are degenerative changes involving both sacroiliac joints. Incidental note is made of a small bone island in the right lateral 6th rib. Soft tissues: There is mild left gynecomastia. There is a midline vertical incision scar in the anterior abdominal wall. No hernia or soft tissue fluid collection is noted. IMPRESSION: 1. Thickening of the wall of the urinary bladder, which may be secondary to its partially distended state, bladder wall hypertrophy, or cystitis. Correlation with urinalysis is suggested. 2. Enlarged prostate. 3. Cirrhotic liver. No ascites. 4. Small transudative pericardial effusion. 5. Colonic diverticulosis without evidence for diverticulitis. Electronically signed by: David Carroll On 10/31/2019 22:44:15 PM
[2019-10-31] MEDS ORDERED: MORPHINE 2 MG/ML 1ML VIAL (J2270) IV ONE ×2 (22:45)
[2019-10-31 22:47] VITALS: BP 118/61
--- NOTE | 2019-11-01 09:15 | ECGEPIP ---
[facility] - ED Test Date: 2019-10-31 Pat Name: LORENZA GRAHAM Department: Room: - Gender: Male Broom Maker: [email or web address] : 1950 Requested By: JAZZ AREVALO Order Number: [id number] Reading MD: Daly Stearns Measurements Intervals [place] Rate: 99 P: 94 GA: 166 QRS: 65 QRSD: 125 T: -1 QT: 349 QTc: 449 Interpretive Statements SINUS RHYTHM RIGHT BUNDLE BRANCH BLOCK NO PRIOR Electronically Signed on 11-01-2019 9:15:20 EDT by Daly Stearns
== END 2019-10-31 22:52 | disposition short-term general hospital (02) ==
LOC: EDBD 20:16 → M ED 20:16
DX: I21.4 Non-ST elevation (NSTEMI) myocardial infarction (principal); K92.2 Gastrointestinal hemorrhage, unspecified; I45.10 Unspecified right bundle-branch block; N40.1 Benign prostatic hyperplasia with lower urinary tract symptoms; K57.30 Diverticulosis of large intestine without perforation or abscess without bleeding; I10 Essential (primary) hypertension; K21.9 Gastro-esophageal reflux disease without esophagitis; E78.5 Hyperlipidemia, unspecified; K70.30 Alcoholic cirrhosis of liver without ascites; Z98.84 Bariatric surgery status; F10.10 Alcohol abuse, uncomplicated; Z79.899 Other long term (current) drug therapy
CPT/HCPCS: 36430; 74176; 80048; 80076; 82550; 82553; 83690; 84484; 85025; 85610; 85730; 86850; 86900; 86901; 86920; 93005; 93041; 96361; 96374; 96375; 96376; 99285; C9113; J2270; P9016